=== PATIENT | female | born 1970 | race Two or more races ===

== ENCOUNTER 2017-03-25 15:30 | Inpatient (IN) | payer MEDICAID ==
[~2017-03-25] VITALS: Ht 157.5 cm; Wt 83.0 kg
[2017-03-25 15:33] VITALS: BP 146/77
[2017-03-25] MEDS ORDERED: NKM (15:39)
--- NOTE | 2017-03-25 16:04 | Emergency Room Report ---
History of Present Illness General Chief Complaint: Abdominal Pain Source: Patient Present Illness HPI Patient is a 46-year-old female who presented for increased abdominal pain. The patient having increased pain to the right upper abdomen for the past 3 days. This had not radiated. Patient previous history of gallstones. Patient was noted to have recent ultrasound. Patient recently been given prescription for oxycodone. Patient having worsening pain. Patient reports having been taking ibuprofen 600 mg. The patient having multiple episodes of vomiting Allergies: Coded Allergies: No Known Allergies (Unverified , 03/25/17) Patient History Last Menstrual Period: 07/2016 - Implant removed last Friday Now: No Reviewed Nursing Documentation: PMH: Agreed, PSxH: Agreed Nursing Documentation-PMH Hx Gastrointestinal Problems: Yes - Gall stones Review of Systems All Other Systems: negative except mentioned in HPI Physical Exam Vital Signs Date Time Temp Pulse Resp B/P Pulse Ox O2 Delivery O2 Flow Rate FiO2 03/25/17 15:33 98.1 79 16 146/77 97 Room Air Sp02 EP Interpretation: reviewed, normal General Appearance: normal inspection, well appearing, no apparent distress, alert, GCS 15, obese Head: atraumatic ENT: normal ENT inspection, hearing grossly normal, normal voice Neck: normal inspection, full range of motion, supple, no bony tend Respiratory: normal inspection, lungs clear, normal breath sounds, no respiratory distress, no retraction, no wheezing Cardiovascular #1: regular rate, rhythm, no edema Gastrointestinal: normal inspection, normal bowel sounds, non tender, soft, no guarding, no hernia Genitourinary: no CVA tenderness Musculoskeletal: normal inspection, back normal, normal range of motion Neurologic: normal inspection, alert, oriented x3, responsive, pattern changer III-XII nml as tested, speech normal Psychiatric: normal inspection, judgement/insight normal, mood/affect normal Skin: normal inspection, normal color, no rash, other - left upper extremity removal of contraceptive implant, c/d/i Medical Decision Making Diagnostic Impression: Primary Impression: Abdominal pain Additional Impressions: Leukocytosis Gallstones ER Course Patient presented for abdominal pain. Differential diagnoses included ischemic bowel, appendicitis, perforated viscus, abdominal aortic aneurysm, inferior myocardial infarction, viral gastroenteritisBecause of complexity of patient's case laboratory testing and imaging studies were ordered.Patient was given IV fluids as well as IV antibiotics. The patient was noted to have mildly elevated white blood count. CT abdomen pelvis read by radiology showed a gallbladder stones with gallbladder distention. There was no evidence of appendicitis. Dr Blanquita Conway was contacted for inpatient management. Labs Test 03/25/17 16:00 03/25/17 16:07 Urine Color Amalia Urine Appearance Slightly cloudy Urine pH 6 (4.5-8.0) Urine Specific [place] 1.020 (1.005-1.035) Urine Protein 2+ (NEGATIVE) Urine Glucose (UA) Negative (NEGATIVE) Urine Ketones Negative (NEGATIVE) Urine Occult Blood 1+ (NEGATIVE) Urine Nitrite Negative (NEGATIVE) Urine Bilirubin Negative (NEGATIVE) Urine Ictotest Negative Urine Urobilinogen 1 MG/DL (0.0-1.0) Urine Leukocyte Esterase 1+ (NEGATIVE) Urine RBC 0-2 /HPF (0 - 2) Urine WBC 0-2 /HPF (0 - 2) Urine Squamous Epithelial Cells Few /LPF (NONE/OCC) Urine Bacteria Few /HPF (NONE) Urine HCG, Qualitative Negative White Blood Count 13.2 K/UL (4.8-10.8) Red Blood Count 3.96 M/UL (4.20-5.40) Hemoglobin 12.9 G/DL (12.0-16.0) Hematocrit 37.2 % (37.0-47.0) Mean Corpuscular Volume 94 FL (80-99) Mean Corpuscular Hemoglobin 32.5 PG (27.0-31.0) Mean Corpuscular Hemoglobin Concent 34.6 G/DL (32.0-36.0) Red Cell Distribution Width 11.2 % (11.6-14.8) Platelet Count 271 K/UL (150-450) Mean Platelet Volume 7.3 FL (6.5-10.1) Neutrophils (%) (Auto) 73.8 % (45.0-75.0) Lymphocytes (%) (Auto) 18.0 % (20.0-45.0) Monocytes (%) (Auto) 6.1 % (1.0-10.0) Eosinophils (%) (Auto) 1.1 % (0.0-3.0) Basophils (%) (Auto) 1.0 % (0.0-2.0) Prothrombin Time 10.1 SEC (9.30-11.50) Prothromb Time International Ratio 1.0 (0.9-1.1) Activated Partial Thromboplast Time 27 SEC (23-33) Sodium Level 139 mEQ/L (135-145) Potassium Level 4.1 mEQ/L (3.4-4.9) Chloride Level 102 mEQ/L (98-107) Carbon Dioxide Level 25 mEQ/L (20-30) Anion Gap 12 (5-15) Blood Urea Nitrogen 7 mg/dL (7-23) Creatinine 0.7 mg/dL (0.5-0.9) Estimat Glomerular Filtration Rate > 60 mL/min (>60) Glucose Level 114 mg/dL (74-106) Calcium Level 9.2 mg/dL (8.6-10.2) Total Bilirubin 0.4 mg/dL (0.0-1.2) Aspartate Amino Transf (AST/SGOT) 18 U/L (5-40) Alanine Aminotransferase (ALT/SGPT) 19 U/L (3-33) Alkaline Phosphatase 106 U/L (35-104) Troponin I < 0.30 ng/mL (<=0.30) Total Protein 7.4 g/dL (6.6-8.7) Albumin 4.2 g/dL (3.5-5.2) Globulin 3.2 g/dL Albumin/Globulin Ratio 1.3 (1.0-2.7) Lipase 19 U/L (< 60) Last Vital Signs Date Time Temp Pulse Resp B/P Pulse Ox O2 Delivery O2 Flow Rate FiO2 03/25/17 15:33 98.1 79 16 146/77 97 Room Air Status: unchanged Disposition: ADMITTED INPATIENT Condition: Serious Referrals: NOT CHOSEN JALEN/,REFERRING (PCP) Chadd Syed Mar 25, 2017 16:04
[2017-03-25 16:33] LABS: EOSINOPHILS % (AUTO) 1.1 % (0.0-3.0); MEAN CORPUSCULAR HEMOGLOBIN 32.5 PG (27.0-31.0); MEAN CORPUSCULAR HGB CONC 34.6 G/DL (32.0-36.0); MEAN CORPUSCULAR VOLUME 94 FL (80-99); MEAN PLATELET VOLUME 7.3 FL (6.5-10.1); MONOCYTES % (AUTO) 6.1 % (1.0-10.0); NEUTROPHILS % (AUTO) 73.8 % (45.0-75.0); PLATELET COUNT 271 K/UL (150-450); RED BLOOD COUNT 3.96 M/UL (4.20-5.40); RED CELL DISTRIBUTION WIDTH 11.2 % (11.6-14.8); WHITE BLOOD COUNT 13.2 K/UL (4.8-10.8)
[2017-03-25 16:36] LABS: APPEARANCE,URINE SLIGHTLY CLOUDY; KETONES,URINE NEGATIVE (NEGATIVE); LEUKOCYTE ESTERASE ,URINE 1+ (NEGATIVE); NITRITE,URINE NEGATIVE (NEGATIVE); PH,URINE 6 (4.5-8.0); PROTEIN,URINE 2+ (NEGATIVE); UROBILINOGEN,URINE 1 MG/DL (0.0-1.0)
[2017-03-25] MEDS ORDERED: Famotidine 20 MG/ 2ML VIAL IVP ONE (16:45)
[2017-03-25] MEDS ORDERED: Morphine Sulfate 4mg/ml Inj IVP ONE ×2 (16:45→20:00)
[2017-03-25 16:48] LABS: BACTERIA,URINE FEW /HPF; RBC,URINE 0-2 /HPF (0 - 2); SQUAMOUS EPITHELIAL CELL,UR FEW /LPF (NONE/OCC); WBC,URINE 0-2 /HPF (0 - 2)
[2017-03-25 16:50] LABS: ALANINE AMINOTRANSFERASE 19 U/L (3-33); ALBUMIN/GLOBULIN RATIO 1.3 (1.0-2.7); ANION GAP 12 (5-15); ASPARTATE AMINO TRANSFERASE 18 U/L (5-40); CALCIUM 9.2 mg/dL (8.6-10.2); CARBON DIOXIDE 25 mEQ/L (20-30); CHLORIDE 102 mEQ/L (98-107); CREATININE 0.7 mg/dL (0.5-0.9); GLOMERULAR FILTRATION RATE > 60 mL/min (>60); HEMOLYSIS 2; LIPASE 19 U/L (< 60); POTASSIUM 4.1 mEQ/L (3.4-4.9); SODIUM 139 mEQ/L (135-145); TOTAL PROTEIN 7.4 g/dL (6.6-8.7)
[2017-03-25 16:51] LABS: TROPONIN I < 0.30 ng/mL (<=0.30)
[2017-03-25 16:53] LABS: ICTOTEST NEGATIVE
[2017-03-25 16:54] LABS: PROTHROMBIN TIME 10.1 SEC (9.30-11.50)
[2017-03-25] MEDS ORDERED: Unasyn 3gm Inj ONE (17:56)
[2017-03-25 17:58] VITALS: BP 136/72
[2017-03-25] MEDS ORDERED: Ampicillin/Sulbactam Sod 3 GM in NS 110 ML IVPB ONE (18:00)
[2017-03-25 19:58] VITALS: BP 140/72
--- NOTE | 2017-03-25 21:46 | Infectious Diseases Prog Note ---
Assessment/Plan Problems: (1) Gallstones Assessment & Plan: rule out acute cholecystitis, will start unasyn, send blood culture, needs Gallbladder US to confirm , general surgery is following, may need cholecystectomy for source control (2) Abdominal pain Assessment & Plan: due to the above, continue pain management as per primary team (3) Leukocytosis Assessment & Plan: suspect sepsis , will send blood culture, and start unasyn empirically (4) Sepsis Assessment & Plan: due to the above, continue unasyn, await blood culture results Subjective Allergies: Coded Allergies: No Known Allergies (Unverified , 03/25/17) Objective Vital Signs Last 24 Hour Vital Signs Date Time Temp Pulse Resp B/P Pulse Ox O2 Delivery O2 Flow Rate FiO2 03/25/17 20:30 98.1 03/25/17 19:58 98.1 78 15 140/72 99 Room Air 03/25/17 17:58 98.1 72 19 136/72 99 Room Air 03/25/17 15:33 98.1 79 16 146/77 97 Room Air 03/25/17 15:33 98.1 79 16 146/77 97 Room Air Height (Feet): 5 Height (Inches): 2.00 Weight (Pounds): 183 Laboratory Tests Test 03/25/17 16:00 03/25/17 16:07 Urine Color Amalia Urine Appearance Slightly cloudy Urine pH 6 (4.5-8.0) Urine Specific [place] 1.020 (1.005-1.035) Urine Protein 2+ (NEGATIVE) H Urine Glucose (UA) Negative (NEGATIVE) Urine Ketones Negative (NEGATIVE) Urine Occult Blood 1+ (NEGATIVE) H Urine Nitrite Negative (NEGATIVE) Urine Bilirubin Negative (NEGATIVE) Urine Ictotest Negative Urine Urobilinogen 1 MG/DL (0.0-1.0) H Urine Leukocyte Esterase 1+ (NEGATIVE) H Urine RBC 0-2 /HPF (0 - 2) Urine WBC 0-2 /HPF (0 - 2) Urine Squamous Epithelial Cells Few /LPF (NONE/OCC) Urine Bacteria Few /HPF (NONE) Urine HCG, Qualitative Negative White Blood Count 13.2 K/UL (4.8-10.8) H Red Blood Count 3.96 M/UL (4.20-5.40) L Hemoglobin 12.9 G/DL (12.0-16.0) Hematocrit 37.2 % (37.0-47.0) Mean Corpuscular Volume 94 FL (80-99) Mean Corpuscular Hemoglobin 32.5 PG (27.0-31.0) H Mean Corpuscular Hemoglobin Concent 34.6 G/DL (32.0-36.0) Red Cell Distribution Width 11.2 % (11.6-14.8) L Platelet Count 271 K/UL (150-450) Mean Platelet Volume 7.3 FL (6.5-10.1) Neutrophils (%) (Auto) 73.8 % (45.0-75.0) Lymphocytes (%) (Auto) 18.0 % (20.0-45.0) L Monocytes (%) (Auto) 6.1 % (1.0-10.0) Eosinophils (%) (Auto) 1.1 % (0.0-3.0) Basophils (%) (Auto) 1.0 % (0.0-2.0) Prothrombin Time 10.1 SEC (9.30-11.50) Prothromb Time International Ratio 1.0 (0.9-1.1) Activated Partial Thromboplast Time 27 SEC (23-33) Sodium Level 139 mEQ/L (135-145) Potassium Level 4.1 mEQ/L (3.4-4.9) Chloride Level 102 mEQ/L (98-107) Carbon Dioxide Level 25 mEQ/L (20-30) Anion Gap 12 (5-15) Blood Urea Nitrogen 7 mg/dL (7-23) Creatinine 0.7 mg/dL (0.5-0.9) Estimat Glomerular Filtration Rate > 60 mL/min (>60) Glucose Level 114 mg/dL (74-106) H Calcium Level 9.2 mg/dL (8.6-10.2) Total Bilirubin 0.4 mg/dL (0.0-1.2) Aspartate Amino Transf (AST/SGOT) 18 U/L (5-40) Alanine Aminotransferase (ALT/SGPT) 19 U/L (3-33) Alkaline Phosphatase 106 U/L (35-104) H Troponin I < 0.30 ng/mL (<=0.30) Total Protein 7.4 g/dL (6.6-8.7) Albumin 4.2 g/dL (3.5-5.2) Globulin 3.2 g/dL Albumin/Globulin Ratio 1.3 (1.0-2.7) Lipase 19 U/L (< 60) Sharon Lizama M.D. Mar 25, 2017 21:46
[2017-03-25 21:58] VITALS: BP 145/78
[2017-03-25 22:40] VITALS: BP 139/78
[2017-03-25] MEDS ORDERED: Morphine Sulfate 2mg/ml Inj IVP PRN (23:00)
[2017-03-25] MEDS: Ampicillin/Sulbactam Sod 3 GM in NS 110 ML IVPB SCH (23:23)
[2017-03-26] MEDS: Morphine Sulfate 2mg/ml Inj IVP PRN ×6 (00:10→23:08)
[2017-03-26 00:26] VITALS: BP 131/73
[2017-03-26 04:00] VITALS: BP 130/70
[2017-03-26] MEDS: Ampicillin/Sulbactam Sod 3 GM in NS 110 ML IVPB SCH ×4 (05:14→23:25)
[2017-03-26 07:08] LABS: BASOPHILS % (AUTO) 0.5 % (0.0-2.0); EOSINOPHILS % (AUTO) 1.1 % (0.0-3.0); LYMPHOCYTES % (AUTO) 16.1 % (20.0-45.0); MEAN CORPUSCULAR HEMOGLOBIN 32.1 PG (27.0-31.0); MEAN CORPUSCULAR VOLUME 94 FL (80-99); MEAN PLATELET VOLUME 6.8 FL (6.5-10.1); MONOCYTES % (AUTO) 7.8 % (1.0-10.0); NEUTROPHILS % (AUTO) 74.5 % (45.0-75.0); PLATELET COUNT 258 K/UL (150-450); RED BLOOD COUNT 3.95 M/UL (4.20-5.40); RED CELL DISTRIBUTION WIDTH 11.3 % (11.6-14.8); WHITE BLOOD COUNT 10.8 K/UL (4.8-10.8)
[2017-03-26 07:27] LABS: ALANINE AMINOTRANSFERASE 18 U/L (3-33); ALBUMIN/GLOBULIN RATIO 1.6 (1.0-2.7); ANION GAP 16 (5-15); ASPARTATE AMINO TRANSFERASE 17 U/L (5-40); CALCIUM 8.4 mg/dL (8.6-10.2); CARBON DIOXIDE 21 mEQ/L (20-30); CHLORIDE 103 mEQ/L (98-107); CREATININE 0.6 mg/dL (0.5-0.9); GLOMERULAR FILTRATION RATE > 60 mL/min (>60); HEMOLYSIS 24; POTASSIUM 4.1 mEQ/L (3.4-4.9); SODIUM 140 mEQ/L (135-145); TOTAL PROTEIN 5.8 g/dL (6.6-8.7)
[2017-03-26 08:00] VITALS: BP 130/70
--- NOTE | 2017-03-26 08:38 | Consultation ---
History of Present Illness General Date patient seen: Mar 26, 2017 Chief Complaint: Abdominal Pain Present Illness Allergies: Coded Allergies: No Known Allergies (Unverified , 03/25/17) Medication History Scheduled No Known Medications* (NKM - No Known Medications*), 0 ., (Reported) Patient History Healthcare decision maker Resuscitation status Advanced Directive on File No Physical Exam Last 24 Hour Vital Signs Date Time Temp Pulse Resp B/P Pulse Ox O2 Delivery O2 Flow Rate FiO2 03/26/17 08:00 98.3 68 19 130/70 95 Room Air 03/26/17 04:00 97.2 75 19 130/70 97 Room Air 03/26/17 00:26 97.5 70 18 131/73 99 Room Air 03/25/17 22:40 98.1 80 17 139/78 99 Room Air 03/25/17 22:40 98.2 80 17 139/78 99 Room Air 03/25/17 21:58 98.4 79 16 145/78 99 Room Air 03/25/17 20:30 98.1 03/25/17 19:58 98.1 78 15 140/72 99 Room Air 03/25/17 17:58 98.1 72 19 136/72 99 Room Air 03/25/17 15:33 98.1 79 16 146/77 97 Room Air 03/25/17 15:33 98.1 79 16 146/77 97 Room Air Intake and Output 03/25/17 03/26/17 19:00 07:00 Intake Total 1110 ml 560 ml Output Total 20 ml Balance 1090 ml 560 ml Intake IV Total 1110 ml 560 ml Output Urine Total 20 ml # Voids 1 Laboratory Tests Test 03/25/17 16:00 03/25/17 16:07 03/26/17 05:05 Urine Color Amalia Urine Appearance Slightly cloudy Urine pH 6 (4.5-8.0) Urine Specific [place] 1.020 (1.005-1.035) Urine Protein 2+ (NEGATIVE) H Urine Glucose (UA) Negative (NEGATIVE) Urine Ketones Negative (NEGATIVE) Urine Occult Blood 1+ (NEGATIVE) H Urine Nitrite Negative (NEGATIVE) Urine Bilirubin Negative (NEGATIVE) Urine Ictotest Negative Urine Urobilinogen 1 MG/DL (0.0-1.0) H Urine Leukocyte Esterase 1+ (NEGATIVE) H Urine RBC 0-2 /HPF (0 - 2) Urine WBC 0-2 /HPF (0 - 2) Urine Squamous Epithelial Cells Few /LPF (NONE/OCC) Urine Bacteria Few /HPF (NONE) Urine HCG, Qualitative Negative White Blood Count 13.2 K/UL (4.8-10.8) H 10.8 K/UL (4.8-10.8) Red Blood Count 3.96 M/UL (4.20-5.40) L 3.95 M/UL (4.20-5.40) L Hemoglobin 12.9 G/DL (12.0-16.0) 12.7 G/DL (12.0-16.0) Hematocrit 37.2 % (37.0-47.0) 37.3 % (37.0-47.0) Mean Corpuscular Volume 94 FL (80-99) 94 FL (80-99) Mean Corpuscular Hemoglobin 32.5 PG (27.0-31.0) H 32.1 PG (27.0-31.0) H Mean Corpuscular Hemoglobin Concent 34.6 G/DL (32.0-36.0) 34.0 G/DL (32.0-36.0) Red Cell Distribution Width 11.2 % (11.6-14.8) L 11.3 % (11.6-14.8) L Platelet Count 271 K/UL (150-450) 258 K/UL (150-450) Mean Platelet Volume 7.3 FL (6.5-10.1) 6.8 FL (6.5-10.1) Neutrophils (%) (Auto) 73.8 % (45.0-75.0) 74.5 % (45.0-75.0) Lymphocytes (%) (Auto) 18.0 % (20.0-45.0) L 16.1 % (20.0-45.0) L Monocytes (%) (Auto) 6.1 % (1.0-10.0) 7.8 % (1.0-10.0) Eosinophils (%) (Auto) 1.1 % (0.0-3.0) 1.1 % (0.0-3.0) Basophils (%) (Auto) 1.0 % (0.0-2.0) 0.5 % (0.0-2.0) Prothrombin Time 10.1 SEC (9.30-11.50) Prothromb Time International Ratio 1.0 (0.9-1.1) Activated Partial Thromboplast Time 27 SEC (23-33) Sodium Level 139 mEQ/L (135-145) 140 mEQ/L (135-145) Potassium Level 4.1 mEQ/L (3.4-4.9) 4.1 mEQ/L (3.4-4.9) Chloride Level 102 mEQ/L (98-107) 103 mEQ/L (98-107) Carbon Dioxide Level 25 mEQ/L (20-30) 21 mEQ/L (20-30) Anion Gap 12 (5-15) 16 (5-15) H Blood Urea Nitrogen 7 mg/dL (7-23) 4 mg/dL (7-23) L Creatinine 0.7 mg/dL (0.5-0.9) 0.6 mg/dL (0.5-0.9) Estimat Glomerular Filtration Rate > 60 mL/min (>60) > 60 mL/min (>60) Glucose Level 114 mg/dL (74-106) H 110 mg/dL (74-106) H Calcium Level 9.2 mg/dL (8.6-10.2) 8.4 mg/dL (8.6-10.2) L Total Bilirubin 0.4 mg/dL (0.0-1.2) 0.7 mg/dL (0.0-1.2) Aspartate Amino Transf (AST/SGOT) 18 U/L (5-40) 17 U/L (5-40) Alanine Aminotransferase (ALT/SGPT) 19 U/L (3-33) 18 U/L (3-33) Alkaline Phosphatase 106 U/L (35-104) H 89 U/L (35-104) Troponin I < 0.30 ng/mL (<=0.30) Total Protein 7.4 g/dL (6.6-8.7) 5.8 g/dL (6.6-8.7) L Albumin 4.2 g/dL (3.5-5.2) 3.6 g/dL (3.5-5.2) Globulin 3.2 g/dL 2.2 g/dL Albumin/Globulin Ratio 1.3 (1.0-2.7) 1.6 (1.0-2.7) Lipase 19 U/L (< 60) Height (Feet): 5 Height (Inches): 2.00 Weight (Pounds): 183 Medications Current Medications Medications (Trade) Dose Ordered Sig/Earline Route PRN Reason Start Time Stop Time Status Last Admin Dose Admin Acetaminophen (Tylenol) 650 mg Q4H PRN ORAL Mild Pain/Temp > 100.5 03/25/17 23:00 04/24/17 22:59 Ampicillin Sodium/ Sulbactam Sodium 3 gm/Sodium Chloride 110 ml @ 220 mls/hr Q6HR IVPB 03/26/17 00:00 04/02/17 00:00 03/26/17 05:14 Morphine Sulfate (Morphine Sulfate) 2 mg Q3H PRN IVP For Pain 7~10 pain scale 03/26/17 00:00 04/02/17 00:00 03/26/17 06:25 Sodium Chloride (0.45% NS 1000ml) 1,000 ml @ 75 mls/hr [id number] IV 03/25/17 23:00 04/24/17 22:59 03/25/17 23:24 Assessment/Plan Assessment/Plan (1) Intractable abdominal pain (2) Acute cholecystitis (3) Cholelithiasis seen dictated. ASHANTI CASTELLANO Mar 26, 2017 08:38
--- NOTE | 2017-03-26 09:03 | Consultation ---
History of Present Illness General Date patient seen: Mar 26, 2017 Chief Complaint: Abdominal Pain Reason for Consultation: RUQ abdominal pain Present Illness HPI 46 year old female with history of cholelithiasis presented with acute onset of RUQ abdominal pain. States that 3-4 days ago she began to have worsening RUQ pain. As pain did not improve she came to [facility] for medical evaluation. Pain described as cramping RUQ pain with radiation to the right upper back. Associated nausea and non bloody emesis since onset. Pain mildly improved with pain meds. Pain worse with palpation of RUQ. In ED CT scan demonstrated large gallstone with some mild pericholecystic fluid. Surgery called to evaluate Allergies: Coded Allergies: No Known Allergies (Unverified , 03/25/17) Medication History Scheduled No Known Medications* (NKM - No Known Medications*), 0 ., (Reported) Patient History History Provided By: Patient Healthcare decision maker Resuscitation status Advanced Directive on File No Past Medical/Surgical History Past Medical/Surgical History: (1) Leukocytosis (2) Gallstones (3) Sepsis (4) Abdominal pain Review of Systems Constitutional: Denies: chills, fever, malaise, no symptoms, other, see HPI, sweats, weakness Eye: Denies: acuity changes, blurred vision, discharge, double vision, eye pain , no symptoms, nose congestion, nose pain, other, see HPI, tearing ENT: Denies: ear discharge, ear pain, hearing loss, mouth pain, nasal discharge , no symptoms, nose congestion, nose pain, other, see HPI, throat pain, throat swelling Respiratory: Denies: COOPER, cough, no symptoms, orthopnea, other, see HPI, shortness of breath, sputum, stridor, wheezing Cardiovascular: Denies: PND, chest pain, edema, no symptoms, other, palpitations, see HPI, syncope Gastrointestinal: Reports: abdominal pain, nausea, vomiting, Denies: constipation, diarrhea, hematemesis, melena, no symptoms, other, see HPI Genitourinary: Denies: discharge, dysuria, frequency, hematuria, incontinence, no symptoms, other, pain, retention, see HPI, urgency, vag bleed/dc Musculoskeletal: Denies: back pain, gout, joint pain, joint swelling, muscle pain, muscle stiffness, no symptoms, other, see HPI Skin: Denies: change in color, change in hair/nails, dryness, lesions, no symptoms, other, rash, see HPI Psychiatric: Denies: HI, SI, anxiety, depressed feelings, emotional problems, hallucinations, no symptoms, other, prior hx, see HPI Neurological: Denies: dizziness, focal weakness, headache, no symptoms, numbness, other, paresthesia, see HPI, seizure, syncope, tingling, tremors Endocrine: Denies: excessive sweating, flushing, increased thirst, increased urine, intolerance to temperature, no symptoms, other, see HPI, unexplained weight loss Hematologic/Lymphatic: Denies: anemia, blood clots, diathesis, easy bleeding, easy bruising, no symptoms, other, see HPI, swollen glands All Other Systems: negative except mentioned in HPI Physical Exam General Appearance: WD/WN, no apparent distress, alert Lines, tubes and drains: peripheral HEENT: mucous membranes moist, PERRL Neck: normal inspection Respiratory/Chest: normal breath sounds, no respiratory distress, no accessory muscle use Cardiovascular/Chest: normal peripheral pulses, normal rate, regular rhythm Abdomen: normal bowel sounds, soft, no organomegaly, no mass, guarding, tender , other - focal RUQ tenderness with voluntary guarding Extremities: normal inspection Skin Exam: normal pigmentation Neurologic: alert, oriented x 3, responsive Last 24 Hour Vital Signs Date Time Temp Pulse Resp B/P Pulse Ox O2 Delivery O2 Flow Rate FiO2 03/26/17 08:00 98.3 68 19 130/70 95 Room Air 03/26/17 04:00 97.2 75 19 130/70 97 Room Air 03/26/17 00:26 97.5 70 18 131/73 99 Room Air 03/25/17 22:40 98.1 80 17 139/78 99 Room Air 03/25/17 22:40 98.2 80 17 139/78 99 Room Air 03/25/17 21:58 98.4 79 16 145/78 99 Room Air 03/25/17 20:30 98.1 03/25/17 19:58 98.1 78 15 140/72 99 Room Air 03/25/17 17:58 98.1 72 19 136/72 99 Room Air 03/25/17 15:33 98.1 79 16 146/77 97 Room Air 03/25/17 15:33 98.1 79 16 146/77 97 Room Air Intake and Output 8/15/17 8/16/17 19:00 07:00 Intake Total 1110 ml 560 ml Output Total 20 ml Balance 1090 ml 560 ml Intake IV Total 1110 ml 560 ml Output Urine Total 20 ml # Voids 1 Laboratory Tests Test 03/25/17 16:00 03/25/17 16:07 03/26/17 05:05 Urine Color Amalia Urine Appearance Slightly cloudy Urine pH 6 (4.5-8.0) Urine Specific [place] 1.020 (1.005-1.035) Urine Protein 2+ (NEGATIVE) H Urine Glucose (UA) Negative (NEGATIVE) Urine Ketones Negative (NEGATIVE) Urine Occult Blood 1+ (NEGATIVE) H Urine Nitrite Negative (NEGATIVE) Urine Bilirubin Negative (NEGATIVE) Urine Ictotest Negative Urine Urobilinogen 1 MG/DL (0.0-1.0) H Urine Leukocyte Esterase 1+ (NEGATIVE) H Urine RBC 0-2 /HPF (0 - 2) Urine WBC 0-2 /HPF (0 - 2) Urine Squamous Epithelial Cells Few /LPF (NONE/OCC) Urine Bacteria Few /HPF (NONE) Urine HCG, Qualitative Negative White Blood Count 13.2 K/UL (4.8-10.8) H 10.8 K/UL (4.8-10.8) Red Blood Count 3.96 M/UL (4.20-5.40) L 3.95 M/UL (4.20-5.40) L Hemoglobin 12.9 G/DL (12.0-16.0) 12.7 G/DL (12.0-16.0) Hematocrit 37.2 % (37.0-47.0) 37.3 % (37.0-47.0) Mean Corpuscular Volume 94 FL (80-99) 94 FL (80-99) Mean Corpuscular Hemoglobin 32.5 PG (27.0-31.0) H 32.1 PG (27.0-31.0) H Mean Corpuscular Hemoglobin Concent 34.6 G/DL (32.0-36.0) 34.0 G/DL (32.0-36.0) Red Cell Distribution Width 11.2 % (11.6-14.8) L 11.3 % (11.6-14.8) L Platelet Count 271 K/UL (150-450) 258 K/UL (150-450) Mean Platelet Volume 7.3 FL (6.5-10.1) 6.8 FL (6.5-10.1) Neutrophils (%) (Auto) 73.8 % (45.0-75.0) 74.5 % (45.0-75.0) Lymphocytes (%) (Auto) 18.0 % (20.0-45.0) L 16.1 % (20.0-45.0) L Monocytes (%) (Auto) 6.1 % (1.0-10.0) 7.8 % (1.0-10.0) Eosinophils (%) (Auto) 1.1 % (0.0-3.0) 1.1 % (0.0-3.0) Basophils (%) (Auto) 1.0 % (0.0-2.0) 0.5 % (0.0-2.0) Prothrombin Time 10.1 SEC (9.30-11.50) Prothromb Time International Ratio 1.0 (0.9-1.1) Activated Partial Thromboplast Time 27 SEC (23-33) Sodium Level 139 mEQ/L (135-145) 140 mEQ/L (135-145) Potassium Level 4.1 mEQ/L (3.4-4.9) 4.1 mEQ/L (3.4-4.9) Chloride Level 102 mEQ/L (98-107) 103 mEQ/L (98-107) Carbon Dioxide Level 25 mEQ/L (20-30) 21 mEQ/L (20-30) Anion Gap 12 (5-15) 16 (5-15) H Blood Urea Nitrogen 7 mg/dL (7-23) 4 mg/dL (7-23) L Creatinine 0.7 mg/dL (0.5-0.9) 0.6 mg/dL (0.5-0.9) Estimat Glomerular Filtration Rate > 60 mL/min (>60) > 60 mL/min (>60) Glucose Level 114 mg/dL (74-106) H 110 mg/dL (74-106) H Calcium Level 9.2 mg/dL (8.6-10.2) 8.4 mg/dL (8.6-10.2) L Total Bilirubin 0.4 mg/dL (0.0-1.2) 0.7 mg/dL (0.0-1.2) Aspartate Amino Transf (AST/SGOT) 18 U/L (5-40) 17 U/L (5-40) Alanine Aminotransferase (ALT/SGPT) 19 U/L (3-33) 18 U/L (3-33) Alkaline Phosphatase 106 U/L (35-104) H 89 U/L (35-104) Troponin I < 0.30 ng/mL (<=0.30) Total Protein 7.4 g/dL (6.6-8.7) 5.8 g/dL (6.6-8.7) L Albumin 4.2 g/dL (3.5-5.2) 3.6 g/dL (3.5-5.2) Globulin 3.2 g/dL 2.2 g/dL Albumin/Globulin Ratio 1.3 (1.0-2.7) 1.6 (1.0-2.7) Lipase 19 U/L (< 60) Height (Feet): 5 Height (Inches): 2.00 Weight (Pounds): 183 Medications Current Medications Medications (Trade) Dose Ordered Sig/Earline Route PRN Reason Start Time Stop Time Status Last Admin Dose Admin Acetaminophen (Tylenol) 650 mg Q4H PRN ORAL Mild Pain/Temp > 100.5 03/25/17 23:00 04/24/17 22:59 Ampicillin Sodium/ Sulbactam Sodium 3 gm/Sodium Chloride 110 ml @ 220 mls/hr Q6HR IVPB 03/26/17 00:00 04/02/17 00:00 03/26/17 05:14 Morphine Sulfate (Morphine Sulfate) 4 mg Q4H PRN IVP severe pain 03/26/17 10:00 04/02/17 09:59 UNV Sodium Chloride (0.45% NS 1000ml) 1,000 ml @ 75 mls/hr [id number] IV 03/25/17 23:00 04/24/17 22:59 03/25/17 23:24 Assessment/Plan Problem List: (1) Gallstones Assessment & Plan: 46F with acute cholecystitis. Afebrile, HD stable, no leukocytosis, LFT's normal, CT with cholelithiasis and pericholecystic fluid, exam with focal RUQ tenderness. -NPO with IV fluids -IV Abx- -HIDA scan ordered Thank you for this consultation. Will follow with recs. pending exam results. if HIDA positive will need cholecystectomy during this admission. ICD Codes: K80.20 - Calculus of gallbladder without cholecystitis without obstruction SNOMED: [id number] Status: stable TachokSy webber Mar 26, 2017 09:03
--- NOTE | 2017-03-26 10:06 | Diagnostic Imaging Report ---
Indication: Right upper quadrant pain, abnormal liver function test, abnormal renal function tests, history of gallstones Technique: Recinos-scale and duplex images of the upper abdomen were obtained Comparison: No comparison ultrasounds. Reference made to abdomen pelvis CT 2016 Findings: Gallbladder demonstrates a large gallstone. Gallbladder wall is thickened, measuring 5 millimeters thick. Focal hypoechoic area adjacent to the gallbladder may represent pericholecystic edema, but suspect that this actually represents area of focal sparing and an otherwise fatty liver. There is questionably sludge and other small stones within the gallbladder is well. Sonographic Darby's sign is positive, per technologist report Common bile duct measures 7 mm in diameter. Questionable calculus seen within the common bile duct. No intrahepatic biliary ductal dilatation. Liver demonstrates diffusely increased echogenicity, consistent with diffuse hepatocellular disease, most likely fatty change. Portal vein and hepatic veins are patent. Pancreas is incompletely visualized due to overlying bowel gas, visualized portions are unremarkable. Spleen is unremarkable. Left kidney measures 10.4 cm in length. Right kidney measures 10.9 cm length. Both kidneys demonstrate normal echogenicity. There is mild prominence to the right renal pelvis, but no walt hydronephrosis. Bright echoes within the left renal sinus are probably artifactual, as no comparable abnormality is seen on recent CT . Non-aneurysmal abdominal aorta . Impression: Cholelithiasis. Thickened gallbladder wall and positive sonographic Darby's sign raises concern for acute cholecystitis may consider nuclear medicine hepatobiliary scan for further evaluation Questionable mild dilatation of the common bile duct, questionable intraductal calculus. Quite possibly artifactual, as, bile duct is normal caliber on recent CT scan and there are no intraluminal abnormalities seen on that study. Liver demonstrates diffusely increased echogenicity, consistent with diffuse hepatocellular disease, most likely fatty change. Hypoechoic area adjacent to the gallbladder fossa likely represents area of focal sparing Other findings as noted
--- NOTE | 2017-03-26 11:34 | General Progress Note ---
Progress Note Progress Note HIDA scan study has non-visualization of GB, nl flow into duodenum. Delayed study pending. Pt still has pain and tenderness in RUQ consistent with acute cholecystitis, though she has had symptoms for bout 2years off and on,, never this strong a pain. Some nausea persists, had some with po ice earlier today. Spoke with patient and and again explained indications, risks, benefits , possible complications and she consents to laparoscopic cholecystectomy and possible open tomorrow at 9:30 am (scheduled with OR) JULIANN NICOLE Mar 26, 2017 11:34
[2017-03-26 12:00] VITALS: BP 128/64
--- NOTE | 2017-03-26 12:41 | Diagnostic Imaging Report ---
Indication: Right upper quadrant pain. Abnormal recent CT scan and ultrasound Technique: IV administration 5.5 mCi 99M technetium mebrofenin. Images obtained over the upper abdomen for 2 hours. Patient had been given 4 mg of morphine immediately prior to imaging, so no morphine was given during the scan Comparison: Reference made to ultrasound and CT scan 03/25/2017 Findings: There is prompt tracer uptake by the liver. Extrahepatic bile ducts are seen at 10 minutes, and excretion into the duodenum at 13 minutes. The gallbladder is never visualized Impression: Nonvisualized gallbladder, consistent with acute cholecystitis. Patent common bile duct Findings discussed by phone with Dr. Snell at the time of interpretation
--- NOTE | 2017-03-26 14:20 | Diagnostic Imaging Report ---
Clinical Indication: PAIN Technique: No oral contrast utilized, per emergency room physician request IV administration nonionic contrast. Venous obtained through the abdomen and pelvis. Multiplanar reconstructions were generated. Total dose length product 977 mGycm. CTDIvol(s) 19 mGy. Dose reduction achieved using automated exposure control Comparison: None Findings: Gallbladder contains a large gallstone. Gallbladder is mildly distended, the wall appears edematous. There is no biliary ductal dilatation. The liver is diffusely hypoattenuating. No focal abnormality. The pancreas, spleen, adrenals, kidneys are unremarkable. No retroperitoneal or mesenteric mass or adenopathy. No pelvic mass or adenopathy. There is colonic diverticulosis. No evidence of diverticulitis. The appendix is normal. No small bowel distention. No free or loculated intraperitoneal air or fluid is evident. The distal esophagus is mildly distended and there is a small sliding-type hiatal hernia. The stomach and duodenum are unremarkable. The included lung bases demonstrate posterior dependent atelectatic change. The heart is borderline enlarged. Bones demonstrate bilateral L5 spondylolysis and grade 2 L5 on S1 spondylolisthesis with secondary degenerative change Impression: Cholelithiasis. Mildly distended gallbladder with edematous wall is concerning for acute cholecystitis. Consider nuclear medicine hepatobiliary scan for further evaluation Fatty liver Diverticulosis. No evidence of diverticulitis Bilateral L5 spondylolysis, grade 2 L5 on S1 spondylolisthesis Incidental finding small sliding-type hiatal hernia, bilateral basilar pulmonary atelectasis This agrees with the preliminary interpretation provided overnight by Dr. Ortega The CT scanner at [facility] is accredited by the [employer] and the scans are performed using protocols designed to limit radiation exposure to as low as reasonably achievable to attain images of sufficient resolution adequate for diagnostic evaluation.
--- NOTE | 2017-03-26 14:47 | Infectious Diseases Prog Note ---
Assessment/Plan Problems: (1) Acute cholecystitis due to biliary calculus Assessment & Plan: recommend cholecystectomy, will continue unasyn for now pending surgical resection (2) Abdominal pain Assessment & Plan: due to the above, continue pain management as per primary team (3) Leukocytosis Assessment & Plan: suspect sepsis , await blood culture, and continue unasyn empirically (4) Sepsis Assessment & Plan: due to the above, continue unasyn, await blood culture results Subjective Constitutional: Reports: no symptoms HEENT: Reports: no symptoms Respiratory: Reports: no symptoms Breasts: Reports: no symptoms Cardiovascular: Reports: no symptoms Gastrointestinal/Abdominal: Reports: bloating, constipation, nausea, other - RUQ pain Genitourinary: Reports: no symptoms Neurologic: Reports: no symptoms Psychiatric: Reports: no symptoms Skin: Reports: no symptoms Endocrine: Reports: no symptoms Hematologic: Reports: no symptoms Musculoskeletal: Reports: no symptoms Allergies: Coded Allergies: No Known Allergies (Unverified , 03/25/17) Objective Vital Signs Last 24 Hour Vital Signs Date Time Temp Pulse Resp B/P Pulse Ox O2 Delivery O2 Flow Rate FiO2 03/26/17 12:00 98.9 68 19 128/64 95 Room Air 03/26/17 08:00 98.3 68 19 130/70 95 Room Air 03/26/17 04:00 97.2 75 19 130/70 97 Room Air 03/26/17 00:26 97.5 70 18 131/73 99 Room Air 03/25/17 22:40 98.1 80 17 139/78 99 Room Air 03/25/17 22:40 98.2 80 17 139/78 99 Room Air 03/25/17 21:58 98.4 79 16 145/78 99 Room Air 03/25/17 20:30 98.1 03/25/17 19:58 98.1 78 15 140/72 99 Room Air 03/25/17 17:58 98.1 72 19 136/72 99 Room Air 03/25/17 15:33 98.1 79 16 146/77 97 Room Air 03/25/17 15:33 98.1 79 16 146/77 97 Room Air Height (Feet): 5 Height (Inches): 2.00 Weight (Pounds): 183 General Appearance: WD/WN, no acute distress HEENT: normocephalic, atraumatic, anicteric, mucous membranes moist, PERRL, supple, no JVD Respiratory/Chest: chest wall non-tender, lungs clear, normal breath sounds, no respiratory distress, no accessory muscle use Cardiovascular: normal peripheral pulses, normal rate, regular rhythm, no gallop/murmur, no JVD Abdomen: non distended, no mass, no scars, absent bowel sounds, distended, tender, other - positive hodge's sign Extremities: no cyanosis, no clubbing Skin: no rash, no lesions, no ulcers Neurologic/Psychiatric: alert, oriented x 3 Laboratory Tests Test 03/25/17 16:00 03/25/17 16:07 03/26/17 05:05 Urine Color Amalia Urine Appearance Slightly cloudy Urine pH 6 (4.5-8.0) Urine Specific [place] 1.020 (1.005-1.035) Urine Protein 2+ (NEGATIVE) H Urine Glucose (UA) Negative (NEGATIVE) Urine Ketones Negative (NEGATIVE) Urine Occult Blood 1+ (NEGATIVE) H Urine Nitrite Negative (NEGATIVE) Urine Bilirubin Negative (NEGATIVE) Urine Ictotest Negative Urine Urobilinogen 1 MG/DL (0.0-1.0) H Urine Leukocyte Esterase 1+ (NEGATIVE) H Urine RBC 0-2 /HPF (0 - 2) Urine WBC 0-2 /HPF (0 - 2) Urine Squamous Epithelial Cells Few /LPF (NONE/OCC) Urine Bacteria Few /HPF (NONE) Urine HCG, Qualitative Negative White Blood Count 13.2 K/UL (4.8-10.8) H 10.8 K/UL (4.8-10.8) Red Blood Count 3.96 M/UL (4.20-5.40) L 3.95 M/UL (4.20-5.40) L Hemoglobin 12.9 G/DL (12.0-16.0) 12.7 G/DL (12.0-16.0) Hematocrit 37.2 % (37.0-47.0) 37.3 % (37.0-47.0) Mean Corpuscular Volume 94 FL (80-99) 94 FL (80-99) Mean Corpuscular Hemoglobin 32.5 PG (27.0-31.0) H 32.1 PG (27.0-31.0) H Mean Corpuscular Hemoglobin Concent 34.6 G/DL (32.0-36.0) 34.0 G/DL (32.0-36.0) Red Cell Distribution Width 11.2 % (11.6-14.8) L 11.3 % (11.6-14.8) L Platelet Count 271 K/UL (150-450) 258 K/UL (150-450) Mean Platelet Volume 7.3 FL (6.5-10.1) 6.8 FL (6.5-10.1) Neutrophils (%) (Auto) 73.8 % (45.0-75.0) 74.5 % (45.0-75.0) Lymphocytes (%) (Auto) 18.0 % (20.0-45.0) L 16.1 % (20.0-45.0) L Monocytes (%) (Auto) 6.1 % (1.0-10.0) 7.8 % (1.0-10.0) Eosinophils (%) (Auto) 1.1 % (0.0-3.0) 1.1 % (0.0-3.0) Basophils (%) (Auto) 1.0 % (0.0-2.0) 0.5 % (0.0-2.0) Prothrombin Time 10.1 SEC (9.30-11.50) Prothromb Time International Ratio 1.0 (0.9-1.1) Activated Partial Thromboplast Time 27 SEC (23-33) Sodium Level 139 mEQ/L (135-145) 140 mEQ/L (135-145) Potassium Level 4.1 mEQ/L (3.4-4.9) 4.1 mEQ/L (3.4-4.9) Chloride Level 102 mEQ/L (98-107) 103 mEQ/L (98-107) Carbon Dioxide Level 25 mEQ/L (20-30) 21 mEQ/L (20-30) Anion Gap 12 (5-15) 16 (5-15) H Blood Urea Nitrogen 7 mg/dL (7-23) 4 mg/dL (7-23) L Creatinine 0.7 mg/dL (0.5-0.9) 0.6 mg/dL (0.5-0.9) Estimat Glomerular Filtration Rate > 60 mL/min (>60) > 60 mL/min (>60) Glucose Level 114 mg/dL (74-106) H 110 mg/dL (74-106) H Calcium Level 9.2 mg/dL (8.6-10.2) 8.4 mg/dL (8.6-10.2) L Total Bilirubin 0.4 mg/dL (0.0-1.2) 0.7 mg/dL (0.0-1.2) Aspartate Amino Transf (AST/SGOT) 18 U/L (5-40) 17 U/L (5-40) Alanine Aminotransferase (ALT/SGPT) 19 U/L (3-33) 18 U/L (3-33) Alkaline Phosphatase 106 U/L (35-104) H 89 U/L (35-104) Troponin I < 0.30 ng/mL (<=0.30) Total Protein 7.4 g/dL (6.6-8.7) 5.8 g/dL (6.6-8.7) L Albumin 4.2 g/dL (3.5-5.2) 3.6 g/dL (3.5-5.2) Globulin 3.2 g/dL 2.2 g/dL Albumin/Globulin Ratio 1.3 (1.0-2.7) 1.6 (1.0-2.7) Lipase 19 U/L (< 60) Current Medications Medications (Trade) Dose Ordered Sig/Earline Route PRN Reason Start Time Stop Time Status Last Admin Dose Admin Acetaminophen (Tylenol) 650 mg Q4H PRN ORAL Mild Pain/Temp > 100.5 03/25/17 23:00 04/24/17 22:59 Ampicillin Sodium/ Sulbactam Sodium/ Sodium Chloride (Unasyn/Sodium Chloride) 110 ml @ 220 mls/hr Q6HR IVPB 03/26/17 00:00 04/02/17 00:00 03/26/17 11:26 Morphine Sulfate 4 mg 4 mg Q4H PRN IVP severe pain 03/26/17 10:00 04/02/17 09:59 03/26/17 14:25 Sodium Chloride (0.45% NS 1000ml) 1,000 ml @ 100 mls/hr Q10H IV 03/26/17 23:00 04/25/17 22:59 Sharon Lizama M.D. Mar 26, 2017 14:47
[2017-03-26 16:00] VITALS: BP 134/65
--- NOTE | 2017-03-26 19:15 | History and Physical Report ---
DATE OF ADMISSION: 03/25/2017 HISTORY OF PRESENT ILLNESS: The patient comes in with five days of abdominal pain as well as vomiting for five days. The patient's pain is mostly right upper quadrant pain. The patient is diagnosed with gall stones and leukocytosis. IV antibiotics were given and Dr. Calloway's group is also consulted. The patient feels pain has been getting worse and that is why, she came to the hospital. It is intermittent, crampy, and radiates to the right flank associated with vomiting. No rectal bleeding. No hematemesis. No chills. No cough. No heartburn. PAST MEDICAL HISTORY: She does have history of gastritis. PAST SURGICAL HISTORY: None known. MEDICATIONS: None. ALLERGIES: None. FAMILY HISTORY: Noncontributory. SOCIAL HISTORY: The patient denies history of smoking, alcohol, or illicit drugs. REVIEW OF SYSTEMS: HEENT: Denies headaches. Respiratory: Denies shortness of breath. Denies cough. Cardiovascular: Denies chest pain. Gastrointestinal: Denies nausea, vomiting, or diarrhea. Extremities: Denies pain. Central Nervous System: Denies change in vision or speech pattern. PHYSICAL EXAMINATION: VITAL SIGNS: Temperature 97.2 degrees, pulse 70, and blood pressure 130/70. HEENT: PERRLA. NECK: Supple. No lymphadenopathy. CHEST: Clear to auscultation. GASTROINTESTINAL: Soft, nontender, and nondistended. No organomegaly. Right upper quadrant tenderness. No rebound. No organomegaly. EXTREMITIES: No edema. Reflexes are equal on both sides. Moves all four extremities. NEUROLOGIC: Sensory intact to light touch. Reflexes are equal on both sides. LABORATORY DATA: WBC of 13.2, hemoglobin 12.9, and platelets of 271,000. Sodium 139, potassium 4.1, chloride 102, BUN of 7, creatinine 0.7, and glucose of 114. ASSESSMENT: 1. Acute cholecystitis. 2. Abdominal pain. 3. Vomiting. 4. Gallstones. PLAN: I have asked Dr. Calloway's group to see the patient as well as Dr. Lizama, Dr. Allen, and Dr. Stafford for the above-mentioned diagnosis and treatment for dehydration as well. On antibiotics per Infectious Disease. Ali Jordyn Conway DR: CHRISTEL JOB#: [id number] CC:
[2017-03-26 20:00] VITALS: BP 125/70
--- NOTE | 2017-03-26 22:30 | Consultation ---
DATE OF CONSULTATION: 03/26/2017 INFECTIOUS DISEASES CONSULTATION REQUESTING PHYSICIAN: Blanquita Conway M.D. REASON FOR CONSULTATION: Acute cholecystitis, sepsis, recommendation for antibiotics treatment. HISTORY OF PRESENT ILLNESS: The patient is a 46-year-old female with a family history of gallstone and no significant past medical history, presented to [facility] emergency room with progressive abdominal pain, which started Juan Antonio. The pain has been progressive and mainly localized in the right upper quadrant, radiates to the epigastrium. The pain was 6/10 initially on and off, then became persistent 10/10, dull deep ache. She is not aware of anything that makes it better except morphine, which she received in the emergency room. Pain gets worse with food eating or movements. In the emergency room, the patient had a CT scan of the abdomen and pelvis that showed cholelithiasis and distended gallbladder suspicious for acute cholecystitis. So, I was consulted by the primary provider for antibiotics treatment and further management. PAST MEDICAL HISTORY: Negative. PAST SURGICAL HISTORY: She had x2. MEDICATIONS: She received Unasyn in the emergency room and morphine. For the rest of her medication, please refer to MAR. ALLERGIES: No known drug allergy. FAMILY HISTORY: Positive for cholecystitis in her sister. SOCIAL HISTORY: She is a housewife, lives with family. Denied using any drugs, tobacco, or alcohol. REVIEW OF SYSTEMS: A 14-point of system reviewed were all negative apart from the one I mentioned above in my History and Physical. PHYSICAL EXAMINATION: GENERAL: Middle-aged female, Mauritian speaker, obese, lying in bed, complaining of right upper quadrant pain, not in acute distress. VITAL SIGNS: Temperature 98.1 degrees, pulse 78, respirations 15, blood pressure 140/72, and pulse oximetry 99% on room air. HEENT: Normocephalic and atraumatic. Pupils both reactive to light. Moist oral mucosa. No exudate. NECK: Supple. No lymphadenopathy. CARDIOVASCULAR: Regular rate and rhythm. No murmur. LUNGS: Clear bilaterally. No wheezing. No rhonchi. Normal breathing efforts. ABDOMEN: Soft, obese, tender in the right upper quadrant with positive Darby sign. No ascites. No guarding. Absent bowel sounds. EXTREMITIES: No edema. No cyanosis. SKIN: No rash. No hives. LABORATORY DATA: Labs showed white count of 13.2, hemoglobin of 12.9, and platelet count of 271,000. BUN of 7 and creatinine of 0.7. Urinalysis showed +2 protein, +1 occult blood, and +1 leukocyte esterase. IMAGING: Abdominal CT scan with contrast showed cholelithiasis with distended gallbladder and edematous wall concerning for acute cholecystitis. Abdominal ultrasound showed cholelithiasis, thickened gallbladder wall and positive sonographic Darby sign raises concern for acute cholecystitis. HIDA scan showed nonvisualized gallbladder consistent with acute cholecystitis. ASSESSMENT AND RECOMMENDATION: 1. Acute cholecystitis due to gallstones, confirmed with ultrasound and HIDA scan. We will start Unasyn. Send blood culture. Need cholecystectomy. General Surgery is following. 2. Abdominal pain due to the above. Continue pain management. Recommend cholecystectomy. 3. Leukocytosis, suspect sepsis. We will send blood culture and start Unasyn empirically. 4. Sepsis due to the above. Continue Unasyn. Await blood culture result. Thank you for the consult. Infectious Diseases will continue to follow. Sharon Lizama M.D. DR: ALLAN JOB#: [id number] CC:
[2017-03-27] VITALS (18 sets, daily range): BP systolic 97–133; BP diastolic 48–72
--- NOTE | 2017-03-27 01:30 | Consultation ---
DATE OF CONSULTATION: 03/26/2017 GASTROLOGY CONSULTATION CHIEF COMPLAINT: I was asked to see this patient by Dr. Blanquita Conway for evaluation of abdominal pain. HISTORY OF PRESENT ILLNESS: The patient is a pleasant 46-year-old woman with a history of cholelithiasis who comes in with history of right upper quadrant abdominal pain, nausea and vomiting. The patient's pain worsened and she came to the emergency room where she was found to be in acute cholecystitis. CT scan in the emergency room showed gallstones and some mild pericholecystic fluid seen. PAST MEDICAL HISTORY: Notable for history of obesity. MEDICATIONS: See the chart list for details. SOCIAL HISTORY: The patient is and lives in [facility]. FAMILY HISTORY: Noncontributory. REVIEW OF SYSTEMS: Otherwise negative. PHYSICAL EXAMINATION: GENERAL: The patient is a pleasant woman seen in her room. HEENT: Normocephalic and atraumatic. Sclerae anicteric. Oropharynx clear. NECK: Supple. CHEST: Clear to auscultation. HEART: Revealed a regular rate. ABDOMEN: Soft with right upper quadrant tenderness to palpation. EXTREMITIES: Revealed no edema. LABORATORY DATA: Noted. The patient had elevated white count, which is now improved. ASSESSMENT: This patient presents with cholelithiasis as well as right upper quadrant abdominal pain and elevated white count. This is all consistent with acute cholecystitis, the patient may require surgical intervention. Patient to undergo laparoscopiccholecystectomy for definitive treatment. RECOMMENDATIONS: Per above discussion and per orders written in the chart. Thank you for asking me to participate in the care of this patient. Elizabeth Allen M.D. DR: YULISSA JOB#: [id number] CC: DIAMOND
[2017-03-27] MEDS: Ampicillin/Sulbactam Sod 3 GM in NS 110 ML IVPB SCH ×3 (05:04→17:41)
[2017-03-27] MEDS: Morphine Sulfate 2mg/ml Inj IVP PRN ×2 (05:05→23:19)
--- NOTE | 2017-03-27 08:40 | Pre-Procedure Note/Attestation ---
Pre-Procedure Note/Attestation Complete Prior to Procedure Planned Procedure: not applicable Procedure Narrative: lap vs open leonardo Indications for Procedure Pre-Operative Diagnosis: acute cholecystitis Attestation I attest that I discussed the nature of the procedure; its benefits; risks and complications; and alternatives (and the risks and benefits of such alternatives ), prior to the procedure, with the patient (or the patient's legal loan servicing representative). I attest that, if there was a reasonable possibility of needing a blood transfusion, the patient (or the patient's legal loan servicing representative) was given the [facility] standardized written summary, pursuant to the Emmanuel Jeff Blood Safety Act ([place] Health and Safety Code # 1645, as amended). I attest that I re-evaluated the patient just prior to the surgery and that there has been no change in the patient's H&P, except as documented below: Sky Dejesus Mar 27, 2017 08:40
[2017-03-27] MEDS ORDERED: Sterile Water Irrig 1000ml IRRIG ONE (09:30)
[2017-03-27] MEDS ORDERED: Ketorolac 30mg Inj ONE (09:30)
[2017-03-27] MEDS ORDERED: NS Irrig 1000ml ONE (09:30)
[2017-03-27] MEDS ORDERED: Morphine Sulfate 10mg/ml Inj ONE (09:30)
[2017-03-27] MEDS ORDERED: fentaNYL 100 mcg/2 mL IV ONE (09:30)
[2017-03-27] MEDS ORDERED: Midazolam 2mg/2ml Inj ONE (09:30)
[2017-03-27] MEDS ORDERED: Propofol 10mg/ml 20ml IV ONE (09:30)
[2017-03-27] MEDS ORDERED: Zemuron 50mg/5ml Inj IV ONE (09:30)
[2017-03-27] MEDS ORDERED: Bupivacaine w/Epi 0.25% 30ml Vial INJ ONE (09:30)
[2017-03-27] MEDS ORDERED: Succinylcholine 20mg/ml 10ml vial ONE (09:30)
[2017-03-27] MEDS ORDERED: LR 1000ml ONE (09:30)
[2017-03-27] MEDS ORDERED: LR 1000ml 1,000 ML IVLG SCH (10:08)
--- NOTE | 2017-03-27 10:08 | Anethesia Preoperative Eval ---
Anesthesia Pre-op PMH/ROS General Date of Evaluation: Mar 27, 2017 Time of Evaluation: 09:12 Anesthesiologist: Aurelio ASA Score: ASA 2 Mallampati Score Class I : Soft palate, uvula, fauces, pillars visible Class II: Soft palate, uvula, fauces visible Class III: Soft palate, base of uvula visible Class IV: Only hard plate visible Mallampati Classification: Class II Surgeon: Brittani Diagnosis: Symptomatic cholelithiasis Surgical Procedure: Laparoscopic cholecystectomy Anesthesia History: none Family History: no anesthesia problems Allergies: Coded Allergies: No Known Allergies (Unverified , 03/25/17) Medications: see eMAR Past Medical History Cardiovascular: Denies: CAD, HTN, [place], arrhythmia, other, valve dz Pulmonary: Denies: COPD, CANDIDA, asthma, other Gastrointestinal/Genitourinary: Reports: GERD Neurologic/Psychiatric: Denies: CVA, TIA, dementia, depression/anxiety, other Endocrine: Denies: DM, hypothyroidism, other, steroids HEENT: Denies: [place] (L), [place] (R), cataract (L), cataract (R), glaucoma, other Hematology/Immune: Denies: DVT, anemia, bleeding disorder, other Musculoskeletal/Integumentary: Denies: DDD, DJD, OA, RA, edema, other Other: obesity PMH Narrative: recurrent abdominal pain nausea vomiting PSxH Narrative: C section x 2 Anesthesia Pre-op Phys. Exam Physician Exam Last Vital Signs Date Time Temp Pulse Resp B/P Pulse Ox O2 Delivery O2 Flow Rate FiO2 03/27/17 08:30 99.5 81 22 125/72 97 Room Air Constitutional: NAD Neurologic: CN 2-12 intact Cardiovascular: RRR, no M/R/G Respiratory: CTA Gastrointestinal: other - obesity Airway Exam Mallampati Score: Class II MO: full Neck: short ROM: full Teeth: missing Dentures: no lower, no upper Anesthesia Pre-op A/P Labs see chart Risk Assessment & Plan Assessment: ASA 2 Plan: GA with ETT PONV preventon Status Change Before Surgery: No Pre-Antibiotics Drug: Ancef 1gr. Given Within 1 Hr of Incision: Yes Time Given: 09:48 JOSE HERNANDEZ M.D. Mar 27, 2017 10:08
[2017-03-27] MEDS ORDERED: DiphenhydrAMINE 50mg/ml Inj IVP PRN (10:15)
[2017-03-27] MEDS ORDERED: fentaNYL 100 mcg/2 mL IV PRN (10:15)
[2017-03-27] MEDS ORDERED: Meperidine 25mg/0.5ml Inj (FOR RIGORS ONLY) IV PRN (10:15)
[2017-03-27] MEDS ORDERED: Midazolam 2mg/2ml Inj IVP PRN (10:15)
[2017-03-27] MEDS ORDERED: Ketorolac 30mg Inj IV PRN (10:15)
[2017-03-27] MEDS ORDERED: Hydromorphone 0.5mg/0.5ml inj IVP PRN (10:15)
[2017-03-27] MEDS ORDERED: Metoclopramide 10mg/2ml Inj IVP PRN (10:15)
--- NOTE | 2017-03-27 11:34 | Operative Note - PDOC ---
Operative Note Operative Note Date of Operation/Procedure: Mar 27, 2017 Pre-op Diagnosis: acute cholecystitis Procedure: Laparoscopic Cholecystectomy Post-op Diagnosis: same as pre-op Surgeon: Abdullahi Dejesus MD Additional Surgeons: Charis Jeffers MD Anesthesiologist: Zurdo Carey MD Anesthesia: general Specimen: yes - gallbladder Complications: none Condition: stable Fluids: see records Estimated Blood Loss: minimal Drains: none Implant(s) used?: No Indications for Procedure 46 year old female presented to ED with complaints of acute onset RUQ abdominal pain with associated nausea and emesis. Exam, history, labs, and radiological data consistent acute cholecystitis. HIDA positive. CT A/P with gb wall thickening and large stone. Surgery was indicated. The risks, benefits, alternative and rationale of surgery explained as documented in Dr. Dejesus, including the risk of not operating. Informed consent was obtained in clinic by Dr. Dejesus for a laparoscopic possible open cholecystectomy which we performed today. Description of Procedure The patient was brought to the operating room where a surgical safety checklist was performed. Preoperatively, IV antibiotics was administered. General anaesthesia was induced. A tompkins catheter was not inserted as the patient was able to void immediately prior to the operation. Arms were not tucked. In supine position, the abdomen was prepped and draped in a sterile fashion. A supra umbilical midline incision was made and carried down to the fascia which was divided exposing the peritoneal cavity. An open technique was used to enter the peritoneal cavity with a Aponte trocar and used to establish our pneumoperitoneum. The laparoscope was inserted into the abdomen under direct vision. Subsequently the following ports were inserted under direct visualization (along with local anesthetic) in the typical fashion: a 10/12 mm epigastric port and two 5 mm ports along the right costal margin. The peritoneal cavity was inspected and no abnormalities were found. The patient was placed in reverse Trendelenburg position with the right side up. Omental attachments to the gallbladder were gently swept away until an atraumatic grasper could be used to retract the fundus of the gallbladder superiorly over the dome of the liver. The gallbladder was distended and required decompression using laparoscopic needle so that it could grasped. The infundibulum was identified and subsequently retracted laterally towards the right lower quadrant using another grasper. This maneuver exposed Calots triangle. The peritoneum overlying the gallbladder infundibulum was incised with electrocautery anteriorly. Then the posterior peritoneum was dissected. The triangle was dissected to expose: 1) the cystic duct LN 2) cystic artery 3) cystic plate 4) cystic duct Once these structures were carefully identified, the cystic artery was divided first. Then further dissection of the triangle was completed. Once it was determined that the only structure remaining, entering the gall bladder was the cystic duct, it was doubly clipped and divided. The electrocautery was then used to separate the peritoneal attachments between the gallbladder and its bed in the liver. The gallbladder fossa and cystic artery were inspected to ensure no bleeding. Hemostasis was achieved with electrocautery. There was/was not leakage of bile from the cystic duct stump. The gallbladder, once freed, was placed in an endoscopic retrieval bag and easily removed from the abdomen through the umbilical port. The specimen was sent to pathology. The fascia at the supra-umbilical port was re-approximated using the 0 vicryl sutures in a [id number] fashion. All incisions were closed using 4-0 monocryl sutures in an interrupted subcuticular fashion. The operative field was cleaned and dried. Steri-strips/dressings were applied. There were no intraoperative complications and estimated blood loss was minimal. All instrument and sponge counts were correct. A surgical de-briefing was performed. The patient was extubated and transferred to the PACU in stable condition. Sky Dejesus Mar 27, 2017 11:34
--- NOTE | 2017-03-27 11:37 | Immediate Post-Op Evaluation ---
Immediate Post-Op Evalulation Immediate Post-Op Evalulation Procedure: Laparoscopic cholecystectomy Date of Evaluation: Mar 27, 2017 Time of Evaluation: 11:36 IV Fluids: 1000 Blood Products: none Estimated Blood Loss: 50 Urinary Output: none Blood Pressure Systolic: 128 Blood Pressure Diastolic: 52 Pulse Rate: 86 Respiratory Rate: 22 O2 Sat by Pulse Oximetry: 98 Temperature (Fahrenheit): 97.6 Nausea: No Vomiting: No Complications none Patient Status: reacts, patent, extubated, none Hydration Status: adequate JOSE HERNANDEZ M.D. Mar 27, 2017 11:37
--- NOTE | 2017-03-27 15:31 | Infectious Diseases Prog Note ---
Assessment/Plan Problems: (1) Acute cholecystitis due to biliary calculus Assessment & Plan: S/P LAP cholecystectomy, will continue unasyn for now and D/ C in am (2) Abdominal pain Assessment & Plan: due to the above, continue pain management as per primary team (3) Leukocytosis Assessment & Plan: improving, due to the above , await blood culture, and continue unasyn empirically (4) Sepsis Assessment & Plan: due to the above, continue unasyn, await blood culture results Subjective Constitutional: Reports: fever HEENT: Reports: no symptoms Respiratory: Reports: no symptoms Breasts: Reports: no symptoms Cardiovascular: Reports: no symptoms Gastrointestinal/Abdominal: Reports: bloating, nausea Genitourinary: Reports: no symptoms Neurologic: Reports: no symptoms Psychiatric: Reports: no symptoms Skin: Reports: no symptoms Endocrine: Reports: no symptoms Hematologic: Reports: no symptoms Allergies: Coded Allergies: No Known Allergies (Unverified , 03/25/17) Objective Vital Signs Last 24 Hour Vital Signs Date Time Temp Pulse Resp B/P Pulse Ox O2 Delivery O2 Flow Rate FiO2 03/27/17 14:08 97.9 89 20 97/48 97 Nasal Cannula 03/27/17 14:00 97.9 89 20 97/48 97 Nasal Cannula 03/27/17 13:39 99.7 84 20 107/63 97 Room Air 03/27/17 13:15 98.0 86 18 104/64 97 Nasal Cannula 2.0 03/27/17 13:00 98.0 94 18 104/64 96 Nasal Cannula 2.0 03/27/17 12:45 97.8 91 17 124/56 98 Nasal Cannula 3.0 03/27/17 12:30 87 17 128/57 97 Nasal Cannula 3.0 03/27/17 12:15 84 15 123/55 98 Nasal Cannula 3.0 03/27/17 12:05 92 12 133/55 99 Nasal Cannula 3.0 03/27/17 11:50 91 19 125/49 98 Simple Mask 6.0 03/27/17 11:40 82 18 125/55 98 Simple Mask 6.0 03/27/17 11:37 86 22 98 03/27/17 11:35 87 20 120/49 98 Simple Mask 6.0 03/27/17 11:29 98.5 90 22 128/58 97 Simple Mask 6.0 03/27/17 08:30 99.5 81 22 125/72 97 Room Air 03/27/17 04:46 98.1 86 18 116/72 93 Room Air 03/27/17 00:27 98.2 77 19 117/70 94 Room Air 03/26/17 20:00 98.3 75 19 125/70 93 Room Air 03/26/17 16:00 98.1 78 19 134/65 96 Room Air Height (Feet): 5 Height (Inches): 2.00 Weight (Pounds): 183 General Appearance: WD/WN, no acute distress HEENT: normocephalic, atraumatic, anicteric, mucous membranes moist, PERRL Respiratory/Chest: chest wall non-tender, normal breath sounds, no respiratory distress, no accessory muscle use, decreased breath sounds Cardiovascular: normal peripheral pulses, normal rate, regular rhythm, no gallop/murmur, no JVD Abdomen: no organomegaly, non distended, no mass, no scars, absent bowel sounds , distended, tender Extremities: no cyanosis, no clubbing Skin: no rash, no lesions, other - multiple surgical wounds due to laparoscopy Microbiology Date/Time Source Procedure Growth Status 03/25/17 23:00 Blood Blood Culture - Preliminary NO GROWTH AFTER 24 HOURS Resulted Current Medications Medications (Trade) Dose Ordered Sig/Aerline Route PRN Reason Start Time Stop Time Status Last Admin Dose Admin Acetaminophen (Tylenol) 650 mg Q4H PRN ORAL Temp > 100.5 03/27/17 12:00 04/26/17 11:59 Acetaminophen (Tylenol) 650 mg Q6H PRN ORAL Mild Pain (Pain Scale 1-3) 03/27/17 12:00 04/26/17 11:59 Acetaminophen/ Hydrocodone Bitart (Howard 10/325) 1 ea Q4H PRN ORAL Severe Pain (Pain Scale 7-10) 03/27/17 12:00 04/03/17 11:59 Acetaminophen/ Hydrocodone Bitart (Howard 5/325) 1 tab Q4H PRN ORAL Moderate Pain (Pain Scale 4-6) 03/27/17 12:00 04/03/17 11:59 Ampicillin Sodium/ Sulbactam Sodium/ Sodium Chloride (Unasyn/Sodium Chloride) 110 ml @ 220 mls/hr Q6HR IVPB 03/26/17 00:00 04/02/17 00:00 03/27/17 12:00 Diphenhydramine HCl (Benadryl) 25 mg Q15M PRN IVP Itching 03/27/17 10:15 03/27/17 16:00 Fentanyl Citrate (Sublimaze 100 mcg/2 mL) 50 mcg Q10M PRN IV Moderate Pain (Pain Scale 4-6) 03/27/17 10:15 03/27/17 16:00 Hydromorphone HCl (Dilaudid) 0.5 mg Q5M PRN IVP Severe Pain (Pain Scale 7-10) 03/27/17 10:15 03/27/17 16:00 Ketorolac Tromethamine (Toradol 30mg) 30 mg Q1H PRN IV Severe Breakthru Pain (>7) 03/27/17 10:15 03/27/17 16:00 Meperidine HCl (Demerol) 25 mg Q15M PRN IV Shivering 03/27/17 10:15 03/27/17 16:00 Metoclopramide HCl (Reglan) 10 mg Q1H PRN IVP Nausea & Vomiting 03/27/17 10:15 03/27/17 16:00 Midazolam HCl (Versed 2mg/2ml vial) 1 mg Q15M PRN IVP For Anxiety 03/27/17 10:15 03/27/17 16:00 Morphine Sulfate 4 mg 4 mg Q4H PRN IVP severe pain 03/26/17 10:00 04/02/17 09:59 03/27/17 05:05 Ondansetron HCl (Zofran) 4 mg Q6H PRN IVP Nausea & Vomiting 03/27/17 08:30 04/26/17 08:29 Sodium Chloride (0.45% NS 1000ml) 1,000 ml @ 100 mls/hr Q10H IV 03/26/17 23:00 04/25/17 22:59 03/27/17 03:22 Sharon Lizama M.D. Mar 27, 2017 15:31
--- NOTE | 2017-03-27 16:12 | General Progress Note ---
Assessment/Plan Problem List: (1) Gallstones ICD Codes: K80.20 - Calculus of gallbladder without cholecystitis without obstruction SNOMED: 613109214 (2) Sepsis ICD Codes: A41.9 - Sepsis, unspecified organism SNOMED: 81579487 (3) Abdominal pain ICD Codes: R10.9 - Unspecified abdominal pain SNOMED: 90192187, 799392897 (4) Acute cholecystitis due to biliary calculus ICD Codes: K80.00 - Calculus of gallbladder with acute cholecystitis without obstruction SNOMED: 83866452783520 Status: progressing Assessment/Plan actue cholycystitis s/p lap choly afebrile abx per id Subjective ROS Limited/Unobtainable: Yes Constitutional: Reports: no symptoms Allergies: Coded Allergies: No Known Allergies (Unverified , 03/25/17) Objective Last 24 Hour Vital Signs Date Time Temp Pulse Resp B/P Pulse Ox O2 Delivery O2 Flow Rate FiO2 03/27/17 14:08 97.9 89 20 97/48 97 Nasal Cannula 03/27/17 14:00 97.9 89 20 97/48 97 Nasal Cannula 03/27/17 13:39 99.7 84 20 107/63 97 Room Air 03/27/17 13:15 98.0 86 18 104/64 97 Nasal Cannula 2.0 03/27/17 13:00 98.0 94 18 104/64 96 Nasal Cannula 2.0 03/27/17 12:45 97.8 91 17 124/56 98 Nasal Cannula 3.0 03/27/17 12:30 87 17 128/57 97 Nasal Cannula 3.0 03/27/17 12:15 84 15 123/55 98 Nasal Cannula 3.0 03/27/17 12:05 92 12 133/55 99 Nasal Cannula 3.0 03/27/17 11:50 91 19 125/49 98 Simple Mask 6.0 03/27/17 11:40 82 18 125/55 98 Simple Mask 6.0 03/27/17 11:37 86 22 98 03/27/17 11:35 87 20 120/49 98 Simple Mask 6.0 03/27/17 11:29 98.5 90 22 128/58 97 Simple Mask 6.0 03/27/17 08:30 99.5 81 22 125/72 97 Room Air 03/27/17 04:46 98.1 86 18 116/72 93 Room Air 03/27/17 00:27 98.2 77 19 117/70 94 Room Air 03/26/17 20:00 98.3 75 19 125/70 93 Room Air Intake and Output 03/26/17 03/27/17 19:00 07:00 Intake Total 850 ml 900 ml Balance 850 ml 900 ml Intake IV Total 850 ml 900 ml # Voids 2 2 Height (Feet): 5 Height (Inches): 2.00 Weight (Pounds): 183 Abdomen: tender Blanquita Conway MD Mar 27, 2017 16:12
[2017-03-27] MEDS: Norco 10mg/325mg tab ORAL PRN ×2 (16:38→20:40)
--- NOTE | 2017-03-27 22:15 | General Progress Note ---
Assessment/Plan Assessment/Plan Assessment - Acute Leonardo - s/p lap leonardo Recommendations - clears - post op care - d/c planning Subjective Allergies: Coded Allergies: No Known Allergies (Unverified , 03/25/17) Subjective seen in am just after operation feels ok some wound pain s/p leonardo Objective Last 24 Hour Vital Signs Date Time Temp Pulse Resp B/P Pulse Ox O2 Delivery O2 Flow Rate FiO2 03/27/17 20:00 99.4 91 18 126/68 94 Room Air 03/27/17 17:41 99.8 03/27/17 16:34 99.8 84 19 108/51 96 Nasal Cannula 03/27/17 14:08 97.9 89 20 97/48 97 Nasal Cannula 03/27/17 14:00 97.9 89 20 97/48 97 Nasal Cannula 03/27/17 13:39 99.7 84 20 107/63 97 Room Air 03/27/17 13:15 98.0 86 18 104/64 97 Nasal Cannula 2.0 03/27/17 13:00 98.0 94 18 104/64 96 Nasal Cannula 2.0 03/27/17 12:45 97.8 91 17 124/56 98 Nasal Cannula 3.0 03/27/17 12:30 87 17 128/57 97 Nasal Cannula 3.0 03/27/17 12:15 84 15 123/55 98 Nasal Cannula 3.0 03/27/17 12:05 92 12 133/55 99 Nasal Cannula 3.0 03/27/17 11:50 91 19 125/49 98 Simple Mask 6.0 03/27/17 11:40 82 18 125/55 98 Simple Mask 6.0 03/27/17 11:37 86 22 98 03/27/17 11:35 87 20 120/49 98 Simple Mask 6.0 03/27/17 11:29 98.5 90 22 128/58 97 Simple Mask 6.0 03/27/17 08:30 99.5 81 22 125/72 97 Room Air 03/27/17 04:46 98.1 86 18 116/72 93 Room Air 03/27/17 00:27 98.2 77 19 117/70 94 Room Air Intake and Output 03/26/17 03/27/17 19:00 07:00 Intake Total 850 ml 900 ml Balance 850 ml 900 ml Intake IV Total 850 ml 900 ml # Voids 2 2 Height (Feet): 5 Height (Inches): 2.00 Weight (Pounds): 183 Objective Obese L woman NCAT supple CTA RRR soft laparoscopy wounds OK no edema non focal AMANDA ARNOLD Mar 27, 2017 22:15
[2017-03-28] MEDS: Ampicillin/Sulbactam Sod 3 GM in NS 110 ML IVPB SCH ×4 (00:22→17:30)
[2017-03-28 00:30] VITALS: BP 100/55
--- NOTE | 2017-03-28 03:33 | Consultation ---
DATE OF CONSULTATION: 03/26/2017 NOTE: POOR AUDIO QUALITY PAIN MANAGEMENT CONSULTATION CONSULTING PHYSICIAN: Angelique German M.D. REFERRING PHYSICIAN: Blanquita Conway M.D. PHYSICIAN VENEER JOINER: Estela Klein CHIEF COMPLAINT: Abdominal pain. HISTORY OF PRESENT ILLNESS: This is a 46-year-old female, who has been seen on the Med/Surg floor of [facility] for initial comprehensive pain management consultation. The patient reports that she has been having abdominal pain for the past three days in the right upper quadrant, had history of gallstones and continues to have severe pain with multiple episodes of vomiting within the ER where she received morphine 4 mg IV, however, when admitted, was on morphine 2 mg IV every three hours as needed with minimal pain relief. Due to this, we were consulted so that the patient would have adequate pain control while here in the hospital. She is going to be seen by surgeon. PAST MEDICAL HISTORY: Gallstones, morbid obesity. PAST SURGICAL HISTORY: . ALLERGIES: No known drug allergies. MEDICATIONS: Oxycodone. SOCIAL HISTORY: Denies smoking tobacco, drinking alcohol, or drug abuse. REVIEW OF SYSTEMS: Denies rash, fever, chills, sweating, dizziness, drowsiness, blurred vision, sore throat, or change in hearing. No diarrhea or blood in the stool or urine. No bowel or bladder incontinence. No dysuria. She is complaining of abdominal pain, nausea, and vomiting. PHYSICAL EXAMINATION: GENERAL: Alert, awake, and oriented, Pashto speaking being interpreted. VITAL SIGNS: Blood pressure 130/70, heart rate is 76, oxygen saturation is 95%, respiratory rate is 19, and temperature is 98.3 degrees Fahrenheit. HEENT: PERRLA. NECK: Range of motion is full in all directions. No tenderness to paracervical muscles. No adenopathy. LUNGS: Clear. HEART: Regular. ABDOMEN: Obese. There is tenderness to palpation in the right upper quadrant. BACK: Range of motion is decreased in flexion and extension with no tenderness to paraspinal muscles, trapezius, or rhomboid muscles. EXTREMITIES: Upper extremity range of motion is full in all directions. Motor is intact. No cyanosis. No clubbing. No edema. Sensory is intact. Reflexes are not obtainable. No adenopathy. Lower extremity range of motion is full in all directions. Motor is intact. No cyanosis. No clubbing. No edema. Sensory is intact. Reflexes are not obtainable. No adenopathy. ASSESSMENT AND PLAN: This is a 46-year-old female with intractable abdominal pain, acute cholecystitis, and cholelithiasis. We will increase the morphine 4 mg IV every four hours as needed for severe pain. The patient was discussed with Dr. German and Dr. German concurred. We will follow the patient. Thank you very much for the courtesy of this consultation. Angelique German M.D. MAICOL Klein DR: JENNA JOB#: [id number] CC: DIAMOND
[2017-03-28 04:00] VITALS: BP 141/69
[2017-03-28] MEDS: Norco 10mg/325mg tab ORAL PRN ×4 (04:36→20:25)
[2017-03-28] MEDS: Morphine Sulfate 2mg/ml Inj IVP PRN (06:42)
[2017-03-28 08:00] VITALS: BP 129/74
--- NOTE | 2017-03-28 09:50 | 48 Hour Post Anesthesia Eval ---
Post Anesthesia Evaluation Procedure: Laparoscopic cholecystectomy Date of Evaluation: Mar 28, 2017 Airway: patent Nausea: No Vomiting: No Pain Intensity: 1 Hydration Status: adequate Cardiopulmonary Status: at baseline Mental Status/LOC: patient returned to baseline Post-Anesthesia Complications: 0 Follow-up care needed: N/A - further care as per primary team BOBBY BOSTON M.D. Mar 28, 2017 09:50
[2017-03-28 12:37] VITALS: BP 100/58
--- NOTE | 2017-03-28 15:34 | General Progress Note ---
Assessment/Plan Assessment/Plan Assessment - Acute Leonardo - s/p lap leonardo Recommendations - diet per surgery - post op care - d/c planning - will be away til Mon-coverage available Subjective Allergies: Coded Allergies: No Known Allergies (Unverified , 03/25/17) Subjective POD #1 s/p leonardo eating some wound pain Objective Last 24 Hour Vital Signs Date Time Temp Pulse Resp B/P Pulse Ox O2 Delivery O2 Flow Rate FiO2 03/28/17 12:37 99.2 101 18 100/58 94 Room Air 03/28/17 08:00 98.2 68 18 129/74 98 Room Air 03/28/17 05:30 99.1 03/28/17 04:00 101.3 93 20 141/69 94 Room Air 03/28/17 00:30 99.8 100 22 100/55 94 Room Air 03/27/17 20:00 99.4 91 18 126/68 94 Room Air 03/27/17 17:41 99.8 03/27/17 16:34 99.8 84 19 108/51 96 Nasal Cannula Intake and Output 03/27/17 03/28/17 19:00 07:00 Intake Total 1000 ml Output Total 50 ml Balance 950 ml IV Total 1000 ml Estimated Blood Loss 50 ml # Voids 3 3 Height (Feet): 5 Height (Inches): 2.00 Weight (Pounds): 183 Objective Obese L woman NCAT supple CTA RRR soft laparoscopy wounds OK no edema non focal AMANDA ARNOLD Mar 28, 2017 15:34
[2017-03-28 16:00] VITALS: BP 135/78
--- NOTE | 2017-03-28 17:09 | Infectious Diseases Prog Note ---
Assessment/Plan Problems: (1) Acute cholecystitis due to biliary calculus Assessment & Plan: S/P LAP cholecystectomy, continue unasyn for now since she had fever and keep in hospital for observation. (2) Abdominal pain Assessment & Plan: suspect due to recent surgery , continue pain management as per primary team (3) Leukocytosis Assessment & Plan: improving, due to the above , blood culture is negative , continue unasyn empirically (4) Postoperative fever Assessment & Plan: due to surgery, improved, continue tylenol and antibiotics, observe for now Subjective Constitutional: Reports: fever HEENT: Reports: no symptoms Respiratory: Reports: no symptoms Breasts: Reports: no symptoms Cardiovascular: Reports: no symptoms Gastrointestinal/Abdominal: Reports: other - pain Genitourinary: Reports: no symptoms Neurologic: Reports: no symptoms Psychiatric: Reports: no symptoms Skin: Reports: no symptoms Endocrine: Reports: no symptoms Hematologic: Reports: no symptoms Musculoskeletal: Reports: no symptoms - pain Allergies: Coded Allergies: No Known Allergies (Unverified , 03/25/17) Objective Vital Signs Last 24 Hour Vital Signs Date Time Temp Pulse Resp B/P Pulse Ox O2 Delivery O2 Flow Rate FiO2 03/28/17 12:37 99.2 101 18 100/58 94 Room Air 03/28/17 08:00 98.2 68 18 129/74 98 Room Air 03/28/17 05:30 99.1 03/28/17 04:00 101.3 93 20 141/69 94 Room Air 03/28/17 00:30 99.8 100 22 100/55 94 Room Air 03/27/17 20:00 99.4 91 18 126/68 94 Room Air 03/27/17 17:41 99.8 Height (Feet): 5 Height (Inches): 2.00 Weight (Pounds): 183 General Appearance: WD/WN, no acute distress HEENT: normocephalic, atraumatic, anicteric, mucous membranes moist Respiratory/Chest: chest wall non-tender, lungs clear, normal breath sounds, no respiratory distress, no accessory muscle use Cardiovascular: normal peripheral pulses, normal rate, regular rhythm, no gallop/murmur, no JVD Abdomen: no organomegaly, non distended, no mass, no scars, hypoactive bowel sounds, tender - in the ruq Extremities: no cyanosis, no clubbing Skin: no rash, no lesions Microbiology Date/Time Source Procedure Growth Status 03/25/17 23:00 Blood Blood Culture - Preliminary NO GROWTH AFTER 48 HOURS Resulted Current Medications Medications (Trade) Dose Ordered Sig/Earline Route PRN Reason Start Time Stop Time Status Last Admin Dose Admin Acetaminophen (Tylenol) 650 mg Q4H PRN ORAL Temp > 100.5 03/27/17 12:00 04/26/17 11:59 03/28/17 16:35 Acetaminophen (Tylenol) 650 mg Q6H PRN ORAL Mild Pain (Pain Scale 1-3) 03/27/17 12:00 04/26/17 11:59 Acetaminophen/ Hydrocodone Bitart (Todd 10/325) 1 ea Q4H PRN ORAL Severe Pain (Pain Scale 7-10) 03/27/17 12:00 04/03/17 11:59 03/28/17 15:14 Acetaminophen/ Hydrocodone Bitart (Todd 5/325) 1 tab Q4H PRN ORAL Moderate Pain (Pain Scale 4-6) 03/27/17 12:00 04/03/17 11:59 Ampicillin Sodium/ Sulbactam Sodium/ Sodium Chloride (Unasyn/Sodium Chloride) 110 ml @ 220 mls/hr Q6HR IVPB 03/26/17 00:00 04/02/17 00:00 03/28/17 11:13 Morphine Sulfate (Morphine Sulfate) 4 mg Q4H PRN IVP severe pain 03/26/17 10:00 04/02/17 09:59 03/28/17 06:42 Ondansetron HCl (Zofran) 4 mg Q6H PRN IVP Nausea & Vomiting 03/27/17 08:30 04/26/17 08:29 Sharon Lizama M.D. Mar 28, 2017 17:09
--- NOTE | 2017-03-28 17:30 | General Surgery Progress Note ---
General Surgery-Progress Note Subjective Symptoms: improved Objective Last 24 Hour Vital Signs Date Time Temp Pulse Resp B/P Pulse Ox O2 Delivery O2 Flow Rate FiO2 03/28/17 12:37 99.2 101 18 100/58 94 Room Air 03/28/17 08:00 98.2 68 18 129/74 98 Room Air 03/28/17 05:30 99.1 03/28/17 04:00 101.3 93 20 141/69 94 Room Air 03/28/17 00:30 99.8 100 22 100/55 94 Room Air 03/27/17 20:00 99.4 91 18 126/68 94 Room Air 03/27/17 17:41 99.8 I&O Intake and Output 03/27/17 03/28/17 19:00 07:00 Intake Total 1000 ml Output Total 50 ml Balance 950 ml IV Total 1000 ml Estimated Blood Loss 50 ml # Voids 3 3 Dressing: dry Wound: clean Drains: none Cardiovascular: RSR Respiratory: clear Abdomen: soft Extremities: no edema Assessment Post-op Diagnosis Acute cholecystitis. Fevers not unexpected with the degree of inflammation. She is tolerating regular diet. Plan Additional Comments We will check a CBC and liver panel in AM. Dhruv Jeffers MD Mar 28, 2017 17:30
[2017-03-28] MEDS: Norco 5mg/325mg tab ORAL PRN (18:51)
[2017-03-28 20:00] VITALS: BP 111/61
--- NOTE | 2017-03-28 21:31 | General Progress Note ---
Assessment/Plan Problem List: (1) Gallstones ICD Codes: K80.20 - Calculus of gallbladder without cholecystitis without obstruction SNOMED: 969284905 (2) Sepsis ICD Codes: A41.9 - Sepsis, unspecified organism SNOMED: 84988412 (3) Abdominal pain ICD Codes: R10.9 - Unspecified abdominal pain SNOMED: 67733400, 604685157 (4) Acute cholecystitis due to biliary calculus ICD Codes: K80.00 - Calculus of gallbladder with acute cholecystitis without obstruction SNOMED: 84528664768811 Status: unchanged Assessment/Plan actue cholycystitis s/p lap choly febrile abdominal pain informed surgeon of fever this am abx per id Subjective ROS Limited/Unobtainable: Yes Allergies: Coded Allergies: No Known Allergies (Unverified , 03/25/17) Objective Last 24 Hour Vital Signs Date Time Temp Pulse Resp B/P Pulse Ox O2 Delivery O2 Flow Rate FiO2 03/28/17 20:00 98.4 98 16 111/61 95 Room Air 03/28/17 17:34 99.5 03/28/17 17:33 99.5 03/28/17 16:00 101.4 107 20 135/78 96 Room Air 03/28/17 12:37 99.2 101 18 100/58 94 Room Air 03/28/17 08:00 98.2 68 18 129/74 98 Room Air 03/28/17 05:30 99.1 03/28/17 04:00 101.3 93 20 141/69 94 Room Air 03/28/17 00:30 99.8 100 22 100/55 94 Room Air Intake and Output 03/27/17 03/28/17 19:00 07:00 Intake Total 1000 ml Output Total 50 ml Balance 950 ml IV Total 1000 ml Estimated Blood Loss 50 ml # Voids 3 3 Height (Feet): 5 Height (Inches): 2.00 Weight (Pounds): 183 Cardiovascular: normal rate Respiratory/Chest: lungs clear Abdomen: tender Blanquita Conway MD Mar 28, 2017 21:31
[2017-03-28] MEDS ORDERED: 1/2 NS 1000ml IV ONE (22:23)
[2017-03-29] VITALS: BP 113/64
[2017-03-29] MEDS: Norco 10mg/325mg tab ORAL PRN ×2 (00:45→11:18)
[2017-03-29] MEDS: Ampicillin/Sulbactam Sod 3 GM in NS 110 ML IVPB SCH ×3 (00:46→11:17)
[2017-03-29 04:00] VITALS: BP 121/62
[2017-03-29] MEDS: Norco 5mg/325mg tab ORAL PRN (05:29)
[2017-03-29 08:00] VITALS: BP 121/61
[2017-03-29 08:27] LABS: BASOPHILS % (AUTO) 0.4 % (0.0-2.0); EOSINOPHILS % (AUTO) 2.4 % (0.0-3.0); LYMPHOCYTES % (AUTO) 11.5 % (20.0-45.0); MEAN CORPUSCULAR HEMOGLOBIN 32.6 PG (27.0-31.0); MEAN CORPUSCULAR HGB CONC 34.2 G/DL (32.0-36.0); MEAN CORPUSCULAR VOLUME 95 FL (80-99); MEAN PLATELET VOLUME 7.3 FL (6.5-10.1); MONOCYTES % (AUTO) 8.6 % (1.0-10.0); NEUTROPHILS % (AUTO) 77.1 % (45.0-75.0); PLATELET COUNT 240 K/UL (150-450); RED BLOOD COUNT 3.44 M/UL (4.20-5.40); RED CELL DISTRIBUTION WIDTH 11.7 % (11.6-14.8); WHITE BLOOD COUNT 13.5 K/UL (4.8-10.8)
[2017-03-29 08:56] LABS: CHOLESTEROL/HDL RATIO 3.1 (3.3-4.4)
[2017-03-29 11:15] VITALS: BP 131/65
--- NOTE | 2017-03-29 12:21 | General Progress Note ---
Progress Note Progress Note afebrile, ambulatory, having BMs. WBC 13, expected postop. Abdomen: soft, BS normal , wounds clean, healing well Stable s/p lap leonardo. OK to D/C home, office JULIANN NICOLE Mar 29, 2017 12:21
[2017-03-29] MEDS ORDERED: ACETAMINOPHEN-1 EAC1 ORAL (14:20)
--- NOTE | 2017-04-01 09:14 | Discharge Summary ---
Discharge Summary Hospital Course Date of Admission Mar 25, 2017 at 18:22 Date of Discharge Mar 29, 2017 at 14:46 Admitting Diagnosis abdominal pain, cholecystitis SHIRLEY Crabtree is a 46 year old female who was admitted on Mar 25, 2017 at 18: 22 for Abdominal Pain,Cholecystitis Hospital Course dc summary #[id number] Discharge Medications Continued Medications: Acetaminophen With Codeine (T#3) (Tylenol #3 Tab*) Y Tab 1 TAB ORAL Q4H PRN for For Pain, #40 TAB Discharge Condition Upon Discharge: stable Discharge Disposition Patient was discharged to Home (01) Discharge Diagnoses: Discharge Instructions Discharge Instructions Special Instructions I have been assigned to complete a D/C Summary on this account. I was not involved in the patient management Braeden Cabral)Matilde NP Apr 01, 2017 09:14
--- NOTE | 2017-04-02 02:00 | Discharge Summary 2 SIG ---
DATE OF ADMISSION: 03/25/2017 DATE OF DISCHARGE: 03/29/2017 REASON FOR ADMISSION: 46-year-old female presented to emergency room with complaint of increased non-radiating abdominal pain for 3 days. The patient had multiple episodes of vomiting. The patient had a prior history of gallstones was taking ibuprofen for pain , with no relief this time. Workup in the emergency room revealed no fever. WBC - 13.2. LFTs were within normal limits. CT of the abdomen and pelvis revealed cholelithiasis. Mildly distended gallbladder with edematous wall concerning for acute cholecystitis. Subsequently surgeon was contacted by ED doctor, who recommended abdominal ultrasound. Abdominal ultrasound revealed cholelithiasis, thickened gallbladder wall, and positive sonographic Darby with concern of acute cholecystitis. The patient was admitted. ADMITTING DIAGNOSES: 1. Cholelithiasis 2. Likely acute cholecystitis. 3. Abdominal pain secondary to likely acute cholecystitis 4. Leukocytosis. HOSPITAL COURSE: The patient was admitted. The patient was kept NPO and started on the IV fluids. The patient started on empiric antibiotics. Pain management was addressed and managed. Surgery, GI, ID, and pain specialist followed. The patient subsequently undergone HIDA scan which revealed nonvisualized gallbladder consistent with acute cholecystitis. Subsequently, decision was made to perform surgery. On 03/27/2017 the patient undergone laparoscopic cholecystectomy. Course of recovery was uneventful. Pain was controlled. Pain specialist followed. Antibiotic continued as per ID. Initially with fever, resolved. Still mild leukocytosis which was expected after surgery, as per surgeon. Pain was controlled. Patient was able to tolerate diet. No nausea. No vomiting. Ambulated and voided. The patient was stable for discharge. DISCHARGE DIAGNOSES: : 1. Cholelithiasis. 2. Acute cholecystitis. 3. Status post laparoscopic cholecystectomy. 4. Abdominal pain secondary to acute cholecystitis. DISCHARGE MEDICATIONS: See medication reconciliation list. DISCHARGE INSTRUCTIONS: The patient was discharged home. Follow up with the surgeon next week. Blanquita Conway M.D. I have been assigned to dictate discharge summary on this account and I was not involved in the patient's management. Matilde Deras N.P. ([place]) DR: MASSIEL JOB#: [id number] CC: DIAMOND
== END 2017-03-29 14:46 | disposition home or self-care (01) | DRG 263 ==
LOC: EMR 15:55 → 3E 18:22 → EDBEDREQ 21:00
PROC: 0FT44ZZ Resection of Gallbladder, Percutaneous Endoscopic Approach (ICD-10-PCS; principal; 2017-03-27 09:30)
DX: K80.00 Calculus of gallbladder with acute cholecystitis without obstruction (principal); E86.0 Dehydration; R50.82 Postprocedural fever
CPT/HCPCS: 36415; 74177; 76700; 78266; 80053; 80061; 81003; 81025; 83690; 84484; 85025; 85610; 85730; 86850; 86900; 86901; 86920; 87040; 94003; 94150; J2250; J2405